=== PATIENT | male | born 1960 | race African-American/Black ===

== ENCOUNTER 2016-12-15 21:04 | Emergency (ER) | payer OTHER ==
[~2016-12-15] VITALS: Ht 177.8 cm; Wt 72.6 kg
[~2016-12-15 21:04] MED LIST: ADVIL200 M1 PO; AMBIEN; AMBIEN 10 MG TA10 MG PO; AMOXICILLIN 50500 MG PO; ASPIRIN325 PO; CYCLOBENZAPRINE5 MG PO; FLEXERIL PO; IBUPROFEN 600600 M1 PO; IBUPROFEN 800800 M1; IBUPROFEN 800800 M1 PO; IBUPROFEN 800800 MG PO; LIDODERM 5%1 PATC1; MOBIC15 MG PO; MOTRIN 600 MG600 M1 GT; NAPROSYN500 MG PO; NOHOMEMEDICATIONS; NORCO 5-325 TA1 EACH PO; NORFLEX100 MG PO; PENICILLIN V P500 MG PO; PENICILLIN VK500 M1 PO; PENICILLIN VK500 MG PO; PERIDEX 0.12%473 M1 SSP; PREDNISONE 20 M20 MG PO; SEROQUEL; SEROQUEL XR 30300 M1 PO; SEROQUEL XR400 M1 PO; TIZANIDINE HCL4 MG PO; TORADOL 10 MG T10 MG PO; TRAMADOL 50 MG50 MG PO; ULTRAM 50MG TAB50 MG PO; VALIUM2 MG PO; VALIUM5 MG PO; VICODIN 5-5001 EACH PO; ZANTAC 150MG T150 MG PO; ZOFRAN ODT4 MG PO
[2016-12-15] MEDS ORDERED: PENICILLIN V P500 MG PO (21:38)
[2016-12-15] MEDS ORDERED: MOBIC15 MG PO (21:38)
[2016-12-15] MEDS ORDERED: MAGIC MOUTHWASH SWISH&SPIT (21:38)
== END 2016-12-15 21:38 | disposition home or self-care (01) ==
LOC: ER 21:04
DX: K08.89 Other specified disorders of teeth and supporting structures (principal); F31.9 Bipolar disorder, unspecified; F17.210 Nicotine dependence, cigarettes, uncomplicated; Z98.890 Other specified postprocedural states

== ENCOUNTER 2017-07-07 15:48 | Emergency (ER) | payer OTHER ==
[~2017-07-07] VITALS: Ht 180.3 cm; Wt 74.8 kg
--- NOTE | ~2017-07-07 | EKG ---
[place] [address] [facility] [place] [address] ELECTROCARDIOGRAM REPORT Name: CLAIREJAKOB Sridevi Room #: DEP [facility]#: [id number] Admission: 07/07/17 Attend Phys: Discharge: 07/07/17 Date of : 60 Report #: [id number] THIS REPORT FOR: //name// [facility] ED Test Date: 2017-07-07 Test Time: 15:59:14 Pat Name: JAKOB RANGEL Department: Room: Gender: M [facility]: [facility] : 1960 Requested By: Avani Byers Order Number: [id number] MD: Renato Marmolejo Measurements Intervals [place] Rate: 80 P: 47 VT: 214 QRS: 66 QRSD: 89 T: 59 QT: 379 QTc: 438 Interpretive Statements Sinus rhythm Prolonged VT interval Compared to ECG 08/19/2014 06:16:16 First degree AV block now present Sinus tachycardia no longer present Ventricular premature complex(es) no longer present Electronically Signed On 07-08-2017 15:49:27 [employer]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
[~2017-07-07 15:48] MED LIST changes: +MAGIC MOUTHWASH SWISH&SPIT
[2017-07-07 16:58] LABS: ABSOLUTE NEUTROPHILS 6.3 thou/uL (1.4-8.2); BASOPHILS 0.4 % (0.0-2.0); EOSINOPHILS 6.5 % (0.0-3.0); HEMOGLOBIN 12.3 gm/dL (14.0-18.0); LYMPHOCYTES 24.3 % (24.0-44.0); MCHC 33.2 g/dL (28.0-37.0); MCV 87.2 fL (80.0-100.0); MONOCYTES 4.5 % (1.0-8.0); PLATELET COUNT 267 thou/uL (150-400); POLYS 64.3 % (36.0-66.0); RBC 4.24 mil/uL (4.50-6.00); RDW 14.1 % (10.5-14.5); WBC 9.8 thou/uL (4.0-11.0)
[2017-07-07 17:06] LABS: ANION GAP 6 mmol/L (7-16); BUN 19 mg/dL (7-18); CHLORIDE 105 mmol/L (98-107); CO2 27 mmol/L (21-32); CREATININE 1.1 mg/dL (0.7-1.3); GLUCOSE 91 mg/dL (74-106); POTASSIUM 3.7 mmol/L (3.5-5.1); SODIUM 138 mmol/L (136-145)
[2017-07-07 17:14] VITALS: BP 121/75
[2017-07-07 17:15] LABS: TROPONIN-I < 0.04 ng/mL (<0.06)
[2017-07-07] MEDS ORDERED: NORCO 5-325 TA1 EACH PO (17:22)
[2017-07-07] MEDS ORDERED: PREDNISONE 20 M20 MG PO (17:22)
[2017-07-07] MEDS ORDERED: PENICILLIN VK500 M1 PO (17:24)
== END 2017-07-07 17:43 | disposition home or self-care (01) ==
LOC: ER 15:48
PROVIDERS: Emergency Medicine
DX: M54.12 Radiculopathy, cervical region (principal); K02.9 Dental caries, unspecified; I10 Essential (primary) hypertension; F17.210 Nicotine dependence, cigarettes, uncomplicated; Z90.49 Acquired absence of other specified parts of digestive tract

== ENCOUNTER 2018-01-16 10:01 | Emergency (ER) | payer OTHER ==
[~2018-01-16] VITALS: Ht 180.3 cm; Wt 72.6 kg
[2018-01-16] MEDS ORDERED: NORCO 5-325 TA1 EACH PO (11:03)
[2018-01-16] MEDS ORDERED: SENNA8.6 MG PO (11:03)
== END 2018-01-16 11:10 | disposition home or self-care (01) ==
LOC: ER 10:01
DX: M79.605 Pain in left leg (principal); G89.29 Other chronic pain; F17.210 Nicotine dependence, cigarettes, uncomplicated; F31.9 Bipolar disorder, unspecified; Z90.49 Acquired absence of other specified parts of digestive tract

== ENCOUNTER 2018-05-02 00:20 | Emergency (ER) | payer OTHER ==
[~2018-05-02] VITALS: Ht 180.3 cm; Wt 72.6 kg
[~2018-05-02 00:20] MED LIST changes: +SENNA8.6 MG PO
[2018-05-02 00:35] VITALS: BP 142/83
[2018-05-02] MEDS ORDERED: ZOFRAN4 MG PO (00:44)
== END 2018-05-02 00:54 | disposition home or self-care (01) ==
LOC: ER 00:20
DX: K40.90 Unilateral inguinal hernia, without obstruction or gangrene, not specified as recurrent (principal); F17.210 Nicotine dependence, cigarettes, uncomplicated; F31.9 Bipolar disorder, unspecified; Z90.49 Acquired absence of other specified parts of digestive tract